=== PATIENT | male | born 1985 | race Caucasian/White ===

== ENCOUNTER 2018-10-25 21:21 | Emergency (ER) | payer MEDICAID ==
[~2018-10-25] VITALS: Ht 188 cm; Wt 122.2 kg
--- NOTE | 2018-10-25 22:08 | NUR ---
pt to room from lobby
[2018-10-25 22:23] LABS: BASOPHILS # (AUTO) 0.05 x10^3/uL (0-0.1); BASOPHILS % (AUTO) 0 % (0-1); EOSINOPHILS # (AUTO) 0.11 x10^3/uL (0-0.4); EOSINOPHILS % (AUTO) 1 % (1-7); LYMPHOCYTES # (AUTO) 2.07 x10^3/uL (1-3.4); LYMPHOCYTES % (AUTO) 14 % (22-44); MD NO; MEAN CORPUSCULAR HEMOGLOBIN 28.9 pg (27.5-34.5); MEAN CORPUSCULAR HGB CONC 33.3 g/dL (33.2-36.2); MEAN CORPUSCULAR VOLUME 86.9 fL (81-97); MEAN PLATELET VOLUME 10.1 fL (7.4-10.4); MONOCYTES # (AUTO) 1.03 x10^3/uL (0.2-0.8); MONOCYTES % (AUTO) 7 % (2-9); NEUTROPHILS # (AUTO) 11.15 x10^3/uL (1.8-6.8); NEUTROPHILS % (AUTO) 77 % (42-75); PLATELET COUNT 230 x10^3/uL (130-400); RED BLOOD COUNT 5.87 x10^6/uL (4.38-5.82); RED CELL DISTRIBUTION WIDTH 14.2 % (9.4-14.8)
--- NOTE | 2018-10-25 22:35 | NUR ---
PT NOT IN ROOM. IN LAB AT THIS TIME
[2018-10-25 22:36] LABS: ALANINE AMINOTRANSFERASE 99 U/L (12-78); ALBUMIN 3.4 g/dL (3.4-5.0); ANION GAP 8 mmol/L (5-15); CALCIUM 8.8 mg/dL (8.5-10.1); CHLORIDE 99 mmol/L (98-107); CREATININE 0.82 mg/dL (0.7-1.3)
[2018-10-25 22:38] LABS: ALKALINE PHOSPHATASE 61 U/L (45-117); BILIRUBIN,TOTAL 1.2 mg/dL (0.2-1.0); TOTAL PROTEIN 7.4 g/dL (6.4-8.2)
[2018-10-25] MEDS ORDERED: AMPICILLIN/SULBACTAM 3 GM in SODIUM CHLORIDE 0.9% 100 ML IV ONE (23:00)
[2018-10-25] MEDS ORDERED: SODIUM CHLORIDE 0.9% 1,000ML IVBOLUS ONE (23:00)
--- NOTE | 2018-10-25 23:21 | NUR ---
DELAY IN PT CARE DUE TO DIFFICULTY OBTAINING IV ACCESS.
[2018-10-25] MEDS ORDERED: LIDOCAINE 1%-EPI 1:100K, 50ML INFIL ONE (23:30)
--- NOTE | 2018-10-25 23:30 | NUR ---
IV ESTABLISHED IN RIGHT UPPER ARM VIA US. PT MEDICATED PER EMAR. 5 RIGHTS ADDRESSED. PT RESTING ON GURNEY IN NAD. ALL VITALS STABLE. WILL CONTINUE TO MONITOR. CALL LIGHT WITHIN REACH.
--- NOTE | 2018-10-25 23:50 | NUR ---
ANTHONY YANES. PT PROVIDED WITH PILLOW. PLACED IN POC.
--- NOTE | 2018-10-26 00:12 | NUR ---
JERI NICOLE AT BEDSIDE PERFORMING I&D
[2018-10-26 00:50] VITALS: BP 123/74
[2018-10-26] MEDS ORDERED: IBUPROFEN 600 MG TABLET ONE (01:13)
--- NOTE | 2018-10-26 01:15 | NUR ---
PT MEDICATED PER EMAR. 5 RIGHTS ADDRESSED
--- NOTE | 2018-10-26 01:15 | NUR ---
Patient/Caregiver given discharge instructions and they have confirmed that they understand the instructions. Patient ambulatory with steady gait.
[2018-10-26] MEDS ORDERED: IBUPROFEN 600 MG TABLET PO ONE (01:30)
== END 2018-10-26 01:44 | disposition home or self-care (01) ==
LOC: ED 10-26 01:08
DX: A41.9 Sepsis, unspecified organism (principal); L03.811 Cellulitis of head [any part, except face]; L02.811 Cutaneous abscess of head [any part, except face]; F17.200 Nicotine dependence, unspecified, uncomplicated
CPT/HCPCS: 10060; 36415; 80053; 83605; 85025; 87040; 96374; 99291; J0295; J7030

== ENCOUNTER 2018-10-27 18:16 | Emergency (ER) | payer MEDICAID ==
[~2018-10-27] VITALS: Ht 188 cm; Wt 123.9 kg
[2018-10-27 18:26] VITALS: BP 126/84
[2018-10-27] MEDS ORDERED: LIDOCAINE-MPF 1%, 5ML ONE ×2 (19:37→19:45)
[2018-10-27] MEDS ORDERED: LIDOCAINE-MPF 1%, 5ML INFIL ONE (20:00)
[2018-10-27] MEDS ORDERED: IBUPROFEN 200 MG TABLET ONE (20:13)
[2018-10-27] MEDS ORDERED: IBUPROFEN 800 MG TABLET PO ONE (20:30)
== END 2018-10-27 20:23 | disposition home or self-care (01) ==
LOC: ED 19:41
DX: L02.811 Cutaneous abscess of head [any part, except face] (principal); F11.10 Opioid abuse, uncomplicated; F17.210 Nicotine dependence, cigarettes, uncomplicated
CPT/HCPCS: 10061; 99284